=== PATIENT | female | born 1970 | race Caucasian/White ===

== ENCOUNTER 2017-11-12 09:26 | Emergency (ER) | payer BC ==
--- NOTE | 2017-11-12 11:35 | RAD REPORT ---
EXAM DESCRIPTION: RAD - Chest Single View - 11/12/2017 11:25 am CLINICAL HISTORY: Shortness of breath COMPARISON: 08/19/2017 FINDINGS: Portable technique limits examination quality. The lungs are grossly clear. The heart is normal in size. No displaced fractures. IMPRESSION: No acute intrathoracic process suspected.
[2017-11-12 11:37] LABS: Absolute Lymphocytes (CBC) 1.8 K/uL (0.7-4.9); Absolute Monocytes 0.4 K/uL (0.1-1.3); Absolute Neutrophil 6.7 K/uL (1.8-8.0); Basophils % 0.7 % (0-1.3); Eosinophils % 1.3 % (0-4.4); Hematocrit 41.4 % (36.0-45.0); Lymphocytes % 19.6 % (15.3-44.8); MCH 31.7 pg (27.0-35.0); MCV 93.8 fL (80-100); Monocytes % 4.6 % (3.3-12.3); RBC Red Blood Cell Count 4.42 M/uL (3.86-4.86)
[2017-11-12 11:50] LABS: Protime INR 1.03
[2017-11-12 11:55] LABS: Potassium 3.8 mEq/L (3.6-5.0)
[2017-11-12 12:01] LABS: Albumin 4.9 g/dL (3.2-5.5); Bilirubin Direct 0.1 mg/dL (0-0.2); Bilirubin Total 0.7 mg/dL (0.3-1.2); Magnesium 2.2 mg/dL (1.8-2.5)
[2017-11-12 12:03] LABS: CKMB Creatine Kinase MB 1.1 ng/ml (0.3-4.0)
--- NOTE | 2017-11-12 12:30 | EDPHYS ---
Physician Documentation [facility] Name: Ava Tompkins Age: 47 yrs Sex: Female : 1970 Arrival Date: 11/12/2017 Time: 09:29 Bed 15 Private MD: ED Physician Yogi Butler HPI: 11/12 10:22 This 47 yrs old Female presents to ER via Ambulatory with complaints of kav Palpitations, Breathing Difficulty, Leg Pain. 11:35 The patient presents with a history of irregular heart beat, heart racing. Context: The kav symptoms occur at rest. Onset: The symptoms/episode began/occurred acutely, just prior to arrival. Duration: The patient or guardian reports a single episode, that is now resolved. Modifying factors: The symptoms are aggravated by anxiety, The symptoms are alleviated by nothing. Associated signs and symptoms: Pertinent positives: anxiety, Pertinent negatives: chest pain, nausea, SOB, syncope, near-syncope, vertigo, vomiting. Severity of symptoms: At their worst the symptoms were moderate just prior to arrival. The patient has experienced a previous episode. patient present with c/o palpitation, sob and lle pain. she has had similar episode of palpitations and was treated for DX: Anxiety. patient reports that the "..sob was related to the anxiety" and lle pain is r/t "..recently pulled calf muscle". 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 - Family history:: not pertinent. - Social history:: Smoking status: Patient/guardian denies using tobacco. - Hospitalizations: : No recent hospitalization is reported. - History obtained from: . ROS: 11:37 Constitutional: Negative for fever, chills, and weight loss, Eyes: Negative for injury, kav pain, redness, and discharge, ENT: Negative for injury, pain, and discharge, Neck: Negative for injury, pain, and swelling, Respiratory: Negative for shortness of breath, cough, wheezing, and pleuritic chest pain, Abdomen/GI: Negative for abdominal pain, nausea, vomiting, diarrhea, and constipation, Back: Negative for injury and pain, : Negative for injury, bleeding, discharge, and swelling, MS/Extremity: Negative for injury and deformity, Skin: Negative for injury, rash, and discoloration, Neuro: Negative for headache, weakness, numbness, tingling, and seizure, Allergy/Immunology: Negative for hives, rash, and allergies, Endocrine: Negative for neck swelling, polydipsia, polyuria, polyphagia, and marked weight changes, Hematologic/Lymphatic: Negative for swollen nodes, abnormal bleeding, and unusual bruising. 11:37 Cardiovascular: Positive for palpitations, Negative for chest pain, edema, orthopnea, paroxysmal nocturnal dyspnea. 11:37 Psych: Positive for anxiety, depression, Negative for suicide gesture, suicidal ideation. Exam: 11:37 Constitutional: This is a well developed, well nourished patient who is awake, alert, kav and in no acute distress. Head/Face: Normocephalic, atraumatic. Eyes: Pupils equal round and reactive to light, extra-ocular motions intact. Lids and lashes normal. Conjunctiva and sclera are non-icteric and not injected. Cornea within normal limits. Periorbital areas with no swelling, redness, or edema. ENT: Nares patent. No nasal discharge, no septal abnormalities noted. Tympanic membranes are normal and external auditory canals are clear. Oropharynx with no redness, swelling, or masses, exudates, or evidence of obstruction, uvula midline. Mucous membranes moist. Neck: Trachea midline, no thyromegaly or masses palpated, and no cervical lymphadenopathy. Supple, full range of motion without nuchal rigidity, or vertebral point tenderness. No Meningismus. Chest/axilla: Normal chest wall appearance and motion. Nontender with no deformity. No lesions are appreciated. Respiratory: Lungs have equal breath sounds bilaterally, clear to auscultation and percussion. No rales, rhonchi or wheezes noted. No increased work of breathing, no retractions or nasal flaring. Abdomen/GI: Soft, non-tender, with normal bowel sounds. No distension or tympany. No guarding or rebound. No evidence of tenderness throughout. Back: No spinal tenderness. No costovertebral tenderness. Full range of motion. Skin: Warm, dry with normal turgor. Normal color with no rashes, no lesions, and no evidence of cellulitis. MS/ Extremity: Pulses equal, no cyanosis. Neurovascular intact. Full, normal range of motion. Neuro: Awake and alert, GCS 15, oriented to person, place, time, and situation. Cranial nerves II-XII grossly intact. Motor strength 5/5 in all extremities. Sensory grossly intact. Cerebellar exam normal. Normal gait. 11:37 Cardiovascular: Rate: normal, actual rate is 68 bpm, Rhythm: regular, Pulses: Pulses are 2+ in . Heart sounds: normal, normal S1and S2, Edema: is not appreciated, JVD: is not appreciated. 11:37 ECG was reviewed by the Attending Physician. 11:37 Psych: Behavior/mood is pleasant, cooperative, anxious, Affect is flat, Oriented to person, place, time, Patient has no thoughts/intents to harm self or others. Judgement / Insight is normal. Memory is normal. Delusions/hallucinations are not present. Vital Signs: 10:09 BP 130 / 83; Pulse 70; Resp 18; Temp 98.6(TE); Pulse Ox 100% on R/A; Weight 63.05 kg; hj Height 5 ft. 6 in. (167.64 cm); Pain 7/10; 10:40 BP 129 / 67; Pulse 65; Resp 18; Pulse Ox 100% on R/A; aj1 12:06 BP 119 / 73; Pulse 71; Resp 18; Pulse Ox 100% on R/A; aj1 13:12 BP 113 / 79; Pulse 76; Resp 16; Pulse Ox 100% on R/A; aj1 10:09 Body Mass Index 22.44 (63.05 kg, 167.64 cm) MDM: 10:22 Patient medically screened. ka 12:29 Data reviewed: vital signs, nurses notes, lab test result(s), EKG, radiologic studies. kav 11/12 10:57 Order name: Basic Metabolic Panel 11/12 10:57 Order name: BNP 11/12 10:57 Order name: CBC with Diff 11/12 10:57 Order name: Ckmb 11/12 10:57 Order name: CPK 11/12 10:57 Order name: LFT's 11/12 10:57 Order name: Magnesium 11/12 10:57 Order name: PT-INR 11/12 10:57 Order name: Ptt, Activated 11/12 10:57 Order name: Troponin (emerg Dept Use Only) 11/12 11:45 Order name: CBC with Automated Diff; Complete Time: 12:26 EDMS 11/12 12:26 Interpretation: Normal except: JOSE JUAN% 73.8. 11/12 11:53 Order name: Protime (+INR); Complete Time: 12:27 EDMS 11/12 12:27 Interpretation: Within normal limits. 11/12 11:53 Order name: PTT, Activated Partial Thromb; Complete Time: 12:27 EDMS 11/12 11:55 Order name: Basic Metabolic Panel; Complete Time: 12:27 EDMS 11/12 12:27 Interpretation: Normal except: GFR 80. 11/12 10:57 Order name: XRAY Chest (1 view) 11/12 10:57 Order name: EKG; Complete Time: 10:58 11/12 10:57 Order name: Cardiac monitoring; Complete Time: 10:58 11/12 10:57 Order name: EKG - Nurse/Tech; Complete Time: 10:58 11/12 10:57 Order name: IV Saline Lock; Complete Time: 10:58 11/12 10:57 Order name: Labs collected and sent; Complete Time: 10:58 11/12 10:57 Order name: O2 Per Protocol; Complete Time: 10:58 11/12 10:57 Order name: O2 Sat Monitoring; Complete Time: 10:58 11/12 11:36 Order name: RAD; Complete Time: 12:27 ED11/12 12:27 Interpretation: No acute disease. 11/12 12:00 Order name: Troponin (Emerg Dept Use Only); Complete Time: 12:27 EDMS 11/12 12:01 Order name: Liver (Hepatic) Function; Complete Time: 12:27 EDMS 11/12 12:28 Interpretation: Within normal limits. 11/12 12:01 Order name: Creatine Phosphokinase; Complete Time: 12:27 EDMS 11/12 12:28 Interpretation: Within normal limits. 11/12 12:01 Order name: Magnesium; Complete Time: 12:26 EDMS 11/12 12:26 Interpretation: Within normal limits. kav 11/12 12:04 Order name: CKMB Creatine Kinase MB; Complete Time: 12:26 EDMS 11/12 12:26 Interpretation: Within normal limits. kav 11/12 12:28 Order name: BNP B-Type Natriuretic Peptide; Complete Time: 12:32 EDMS 11/12 12:32 Interpretation: Within normal limits. kav EC:37 Rate is 68 beats/min. Rhythm is regular. QRS Boss is Normal. CT interval is normal. QRS kav interval is normal. QT interval is normal. No Q waves. T waves are Normal. No ST changes noted. Administered Medications: 12:21 Drug: Ativan 0.5 mg Route: IVP; Site: right forearm; aj1 13:13 Follow up: Response: No adverse reaction aj1 Disposition: 21:36 Co-signature as Attending Physician, Yogi Butler MD I agree with the assessment and kdr plan of care. Disposition: 11/12/17 12:29 Discharged to Home. Impression: Anxiety disorder, unspecified. - Condition is Stable. - Discharge Instructions: Social Anxiety Disorder, Panic Attacks, Ckgs-nm-Marn, Generalized Anxiety Disorder. - Prescriptions for Ativan 0.5 mg Oral Tablet - take 1 tablet by ORAL route every 8 hours As needed; 10 tablet. - Medication Reconciliation Form, Thank You Letter, Antibiotic Education, Prescription Opioid Use form. - Follow up: Private Physician; When: 1 - 2 days; Reason: Recheck today's complaints, Continuance of care, Re-evaluation by your physician. - Problem is new. - Symptoms have improved. Signatures: Dispatcher [employer] Nelda Tony RN RN aj1 Yogi Butler MD MD kdr Vern, Katherine, CADET DECK CADET DECK Andrey Aponte RN RN hj Corrections: (The following items were deleted from the chart) 12: 12:27 Within normal limits. kav kav 12:28 12:27 Within normal limits. kav kav
--- NOTE | 2017-11-12 12:30 | ER ---
Nurse's Notes [facility] Name: Ava Tompkins Age: 47 yrs Sex: Female : 1970 Arrival Date: 11/12/2017 Time: 09:29 Bed 15 Private MD: Diagnosis: Anxiety disorder, unspecified Presentation: 11/12 10:06 Presenting complaint: Patient states: my hear beats really fast and im short of breath, hj it started around 8 am today; my L leg is also hurting from an injury i had before;. Transition of care: patient was not received from another setting of care. Onset of symptoms was November 12, 2017 at 08:00. Care prior to arrival: None. 10:06 Method Of Arrival: Ambulatory 10:06 Acuity: RADHA 3 hj Triage Assessment: 10:08 General: Appears in no apparent distress. uncomfortable, Behavior is cooperative, hj appropriate for age, crying. Pain: Complains of pain in chest. Respiratory: Reports shortness of breath Onset: The symptoms/episode began/occurred today, the patient has moderate shortness of breath. 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 - Family history:: not pertinent. - Social history:: Smoking status: Patient/guardian denies using tobacco. - Hospitalizations: : No recent hospitalization is reported. - History obtained from: . Screenin:40 Abuse screen: Denies threats or abuse. Denies injuries from another. Nutritional aj1 screening: No deficits noted. Tuberculosis screening: No symptoms or risk factors identified. 13:23 Fall Risk None identified. aj1 Assessment: 10:09 Cardiovascular: Rhythm is regular. Respiratory: Airway is patent Respiratory effort is hj even, unlabored, Respiratory pattern is regular, symmetrical, Breath sounds are clear. 10:40 General: Appears in no apparent distress. uncomfortable, Behavior is cooperative, aj1 anxious. Pain: Complains of pain in left leg Pain does not radiate. Quality of pain is described as "feels like theres lead in it". Neuro: Level of Consciousness is awake, alert, obeys commands, Oriented to person, place, time, situation, Speech is normal, Facial symmetry appears normal. Cardiovascular: Reports palpitations, shortness of breath, Denies chest pain, diaphoresis, vomiting, Heart tones S1 S2 present Patient's skin is warm and dry. Rhythm is regular. Respiratory: Airway is patent Respiratory effort is even, unlabored, Respiratory pattern is regular, symmetrical, Breath sounds are clear bilaterally. GI: No signs and/or symptoms were reported involving the gastrointestinal system. : No signs and/or symptoms were reported regarding the genitourinary system. EENT: No signs and/or symptoms were reported regarding the EENT system. Derm: No signs and/or symptoms reported regarding the dermatologic system. Skin is pink, warm \\T\\ dry. normal. Musculoskeletal: No signs and/or symptoms reported regarding the musculoskeletal system. Circulation, motion, and sensation intact. 11:10 Reassessment: Patient appears in no apparent distress at this time. No changes from aj1 previously documented assessment. Patient and/or family updated on plan of care and expected duration. Pain level reassessed. Patient is alert, oriented x 3, equal unlabored respirations, skin warm/dry/pink. 12:06 Reassessment: Patient and/or family updated on plan of care and expected duration. Pain aj1 level reassessed. General: Appears in no apparent distress. uncomfortable, Behavior is calm, cooperative, appropriate for age. Neuro: Level of Consciousness is awake, alert, obeys commands, Oriented to person, place, time, situation, Speech is normal, Facial symmetry appears normal. Cardiovascular: Patient's skin is warm and dry. Rhythm is sinus rhythm. Respiratory: Airway is patent Respiratory effort is even, unlabored, Respiratory pattern is regular, symmetrical. Derm: Skin is pink, warm \\T\\ dry. normal. Musculoskeletal: Circulation, motion, and sensation intact. 13:11 Reassessment: Patient appears in no apparent distress at this time. No changes from aj1 previously documented assessment. Patient and/or family updated on plan of care and expected duration. Pain level reassessed. Patient is alert, oriented x 3, equal unlabored respirations, skin warm/dry/pink. Vital Signs: 10:09 BP 130 / 83; Pulse 70; Resp 18; Temp 98.6(TE); Pulse Ox 100% on R/A; Weight 63.05 kg; hj Height 5 ft. 6 in. (167.64 cm); Pain 7/10; 10:40 BP 129 / 67; Pulse 65; Resp 18; Pulse Ox 100% on R/A; aj1 12:06 BP 119 / 73; Pulse 71; Resp 18; Pulse Ox 100% on R/A; aj1 13:12 BP 113 / 79; Pulse 76; Resp 16; Pulse Ox 100% on R/A; aj1 10:09 Body Mass Index 22.44 (63.05 kg, 167.64 cm) ED Course: 09:29 Patient arrived in ED. mr 10:08 Triage completed. hj 10:09 Arm band placed on right wrist. hj 10:22 Lata Rose FNP is PHCP. kav 10:22 Yogi Butler MD is Attending Physician. ka 10:38 Nelda Howell, RN is Primary Nurse. aj1 10:40 Patient has correct armband on for positive identification. Placed in gown. Bed in low aj1 position. Call light in reach. Side rails up X 1. threat monitoring analyst on. Pulse ox on. NIBP on. 10:40 No provider procedures requiring assistance completed. Initial lab(s) drawn, by , ortiz sent to lab. Inserted saline lock: 20 gauge in right antecubital area, using aseptic technique. Blood collected. 11:24 X-ray completed. Portable x-ray completed in exam room. Patient tolerated procedure ml well. 11:58 EKG done, by solder technician. reviewed by Yogi Butler MD. tc 13:24 IV discontinued, intact, bleeding controlled, No redness/swelling at site. Pressure aj1 dressing applied. Administered Medications: 12:21 Drug: Ativan 0.5 mg Route: IVP; Site: right forearm; aj1 13:13 Follow up: Response: No adverse reaction aj1 Outcome: 12:29 Discharge ordered by . kav 13:23 Discharged to home ambulatory. aj1 13:23 Condition: good 13:23 Discharge instructions given to patient, Instructed on discharge instructions, follow up and referral plans. medication usage, Demonstrated understanding of instructions, follow-up care, wound care, Prescriptions given X 1. 13:24 Patient left the ED. aj1 Signatures: Nelda Howell, RN RN aj1 Lata Rose, CRISIS MENTAL HEALTH THERAPIST CRISIS MENTAL HEALTH THERAPIST Annmarie Burroughs mr Charles, Karla ml Vero Peralta, garment parts cutter hand EKG [facility] Andrey Dominguez, RN RN hj Corrections: (The following items were deleted from the chart) 10:11 10:09 Pulse 70bpm; Resp 18bpm; Pulse Ox 100% RA; Temp 98.6F Temporal; 63.05 kg; Height hj 5 ft. 6 in.; BMI: 22.4; Pain /10; hj
[2017-11-12] MEDS ORDERED: LORazepam 2 MG/ML VIAL ONE (12:32)
--- NOTE | 2017-11-12 16:51 | EKG ---
Test Date: 2017-10-24 Test Time: 10:08:25 Jack Machine Operator: ERUM MEASUREMENT RESULTS: Intervals: Rate: 68 AK: 130 QRSD: 74 QT: 430 QTc: 457 [place]: P: 65 AK: 130 QRS: 74 T: 58 INTERPRETIVE STATEMENTS: Normal sinus rhythm Normal ECG Compared to ECG 08/19/2017 12:39:31 No significant changes Electronically Signed On 11-12-17 16:50:06 CDT by Jadon Staton
== END 2017-11-12 13:24 | disposition home or self-care (01) ==
LOC: ER 09:26
DX: F41.9 Anxiety disorder, unspecified (principal); Z88.0 Allergy status to penicillin
CPT/HCPCS: 36415; 71045; 80048; 80076; 82550; 82553; 83735; 83880; 84484; 85025; 85610; 85730; 93005; 96374; 99284

== ENCOUNTER 2018-08-17 02:49 | Emergency (ER) | payer BC ==
--- OUTSIDE RECORDS SUMMARY | 2018-08-17 02:51 | XMS REPORT ---
:1970 Author Organization [employer] Care Team Providers Name Role Phone Pacheco, Na Provider Role Unavailable Allergies, Adverse Reactions, Alerts Substance Reaction Event Type penicillin Info Not Available Drug Allergy Problems Problem Type Condition Code Onset Dates Condition Status Assessment Rupture of left gastrocnemius S86.112S Active tendon, sequela Assessment Hot flashes R23.2 Active Assessment Difficulty sleeping G47.9 Active Problem Panic attacks F41.0 Active Problem Difficulty sleeping G47.9 Active Problem Depression with anxiety F41.8 Active Assessment Depression with anxiety F41.8 Active Assessment Panic attacks F41.0 Active Problem Hot flashes R23.2 Active Problem Rupture of left gastrocnemius S86.112S Active tendon, sequela Medications Medication Code System Code Instructions Start End Date Status Dosage Date Ativan [facility] 14434087930 0.5 MG Orally November 19, Active 1 tablet as every 12 hrs prn 2018 needed anxiety/panic attacks Duexis [facility] 67405118440 800-26.6 MG Active 1 tablet Orally Three times a day Viberzi [facility] 11680467796 75 MG Orally Active 1 tablet Twice a day with food Celexa [facility] 57521939277 20 MG Orally Active 1 tablet Once a day Effexor XR ND 37978859122 75 MG Orally November 19, Active 1 capsule Once a day 2018 with food Results No Known Results Summary Purpose [employer]Clinical[employer] Submission
--- OUTSIDE RECORDS SUMMARY | 2018-08-17 02:51 | XMS REPORT ---
:1970 Author Organization [employer] Care Team Providers Name Role Phone Pacheco, Na Provider Role Unavailable Allergies No Known Allergies Problems Problem Type Condition Code Onset Dates Condition Status Problem Hot flashes R23.2 Active Problem Rupture of left gastrocnemius S86.112S Active tendon, sequela Problem Moderate episode of recurrent F33.1 Active major depressive disorder Problem Difficulty sleeping G47.9 Active Problem Depression with anxiety F41.8 Active Problem Panic attacks F41.0 Active Medications No Known Medications Results No Known Results Summary Purpose eClinicalWorks Submission
--- OUTSIDE RECORDS SUMMARY | 2018-08-17 02:51 | XMS REPORT ---
:1970 Author Organization [employer] Care Team Providers Name Role Phone Pacheco, Na Provider Role Unavailable Allergies, Adverse Reactions, Alerts Substance Reaction Event Type penicillin Info Not Available Drug Allergy Problems Problem Type Condition Code Onset Dates Condition Status Assessment Panic attacks F41.0 Active Assessment Depression with anxiety F41.8 Active Assessment Moderate episode of recurrent F33.1 Active major depressive disorder Assessment Hot flashes R23.2 Active Problem Hot flashes R23.2 Active Problem Rupture of left gastrocnemius S86.112S Active tendon, sequela Problem Moderate episode of recurrent F33.1 Active major depressive disorder Problem Difficulty sleeping G47.9 Active Problem Depression with anxiety F41.8 Active Problem Panic attacks F41.0 Active Medications Medication Code System Code Instructions Start Date End Date Status Dosage Celexa NDC 0 Active not defined Results No Known Results Summary Purpose eClinicalWorks Submission
--- OUTSIDE RECORDS SUMMARY | 2018-08-17 02:51 | XMS REPORT ---
:1970 Author Organization [employer] Care Team Providers Name Role Phone Pacheco, Na Provider Role Unavailable Allergies, Adverse Reactions, Alerts Substance Reaction Event Type penicillin Info Not Available Drug Allergy Problems Problem Type Condition Code Onset Dates Condition Status Assessment Hot flashes R23.2 Active Assessment Depression with anxiety F41.8 Active Assessment Panic attacks F41.0 Active Assessment Screening mammogram, encounter for Z12.31 Active Problem Hot flashes R23.2 Active Problem Rupture of left gastrocnemius S86.112S Active tendon, sequela Problem Moderate episode of recurrent F33.1 Active major depressive disorder Problem Difficulty sleeping G47.9 Active Problem Depression with anxiety F41.8 Active Problem Panic attacks F41.0 Active Medications Medication Code Code Instructions Start End Status Dosage System Date Date Duexis [facility] 47207628554 800-26.6 MG Active 1 tablet Orally Three times a day Celexa [facility] 54464020038 20 MG Orally Active 1 tablet Once a day Wellbutrin SR [facility] 84168944244 100 MG Orally March 19, Active 1 tablet Once a day 2018 in the morning Viberzi [facility] 82573521045 75 MG Orally Active 1 tablet Twice a day with food Effexor XR [facility] 90766965403 150 MG Orally Active 1 capsule Once a day with food Ativan [facility] 31874148481 0.5 MG Orally Active 1 tablet every 12 hrs prn as needed anxiety/panic attacks Results No Known Results Summary Purpose eClinicalWorks Submission
--- OUTSIDE RECORDS SUMMARY | 2018-08-17 02:51 | XMS REPORT ---
:1970 Author Organization [employer] Care Team Providers Name Role Phone Pacheco, Na Provider Role Unavailable Allergies No Known Allergies Problems Problem Type Condition Code Onset Dates Condition Status Problem Panic attacks F41.0 Active Problem Difficulty sleeping G47.9 Active Problem Depression with anxiety F41.8 Active Assessment Screening mammogram, encounter for Z12.31 Active Problem Hot flashes R23.2 Active Problem Rupture of left gastrocnemius S86.112S Active tendon, sequela Medications No Known Medications Results No Known Results Summary Purpose eClinicalWorks Submission
--- OUTSIDE RECORDS SUMMARY | 2018-08-17 02:51 | XMS REPORT ---
[...] Instructions Start End Date Status Dosage Date Duexis [facility] 76144245057 800-26.6 MG Active 1 tablet Orally Three times a day Celexa [facility] 76150835888 20 MG Orally Active 1 tablet Once a day Effexor XR [facility] 85498752466 150 MG Orally December 17, Active 1 capsule Once a day 2017 with food Ativan ND 43979742661 0.5 MG Orally Active 1 tablet as every 12 hrs prn needed anxiety/panic attacks Viberzi [facility] 54696881771 75 MG Orally Active 1 tablet Twice a day with food Effexor XR [facility] 18716330868 75 MG Orally Active 1 capsule Once a day with food Results No Known Results Summary Purpose [employer]ClinicalWorks Submission
[2018-08-17] MEDS ORDERED: ASPIRIN 81 MG CHEWABLE TABLET ONE (03:29)
[2018-08-17] MEDS ORDERED: LORazepam 2 MG/ML VIAL ONE (03:29)
[2018-08-17] MEDS ORDERED: NA CHLORIDE 0.9% 1,000 ML ONE (03:30)
[2018-08-17 03:45] LABS: Absolute Lymphocytes (CBC) 2.6 K/uL (0.7-4.9); Absolute Monocytes 0.4 K/uL (0.1-1.3); Eosinophils % 1.6 % (0-4.4); Hematocrit 43.3 % (36.0-45.0); Lymphocytes % 36.2 % (15.3-44.8); MPV 9.2 fL (7.6-11.3); Monocytes % 5.3 % (3.3-12.3); Protime INR 1.08; RBC Red Blood Cell Count 4.66 M/uL (3.86-4.86)
[2018-08-17] MEDS ORDERED: LEVALBUTEROL 1.25 MG/3 ML NEB ONE (03:49)
[2018-08-17 03:51] LABS: Arterial Blood Carboxyhemoglob 0.7 % (0-1.5); Blood Gas Oxyhemoglobin 96.3 % (94-97); Blood O2 Saturation 98.1 % (92-98.5)
[2018-08-17 03:58] LABS: ALT/SGPT 26 U/L (12-78); AST/SGOT 23 U/L (15-37); Albumin 4.2 g/dL (3.4-5.0); Alkaline Phosphatase 58 U/L (45-117); BUN Blood Urea Nitrogen 13 mg/dL (7-18); Bicarbonate 23 mmol/L (21-32); Bilirubin Direct 0.1 mg/dL (0-0.2); Bilirubin Total 0.6 mg/dL (0.2-1.0); Glucose Level 113 mg/dL (74-106); Magnesium 2.4 mg/dL (1.8-2.4); NT PRO-BNP 41 pg/mL (<125); Potassium 3.7 mmol/L (3.5-5.1); Sodium Level 140 mmol/L (136-145); Troponin (Emerg Dept Use Only) < 0.02 ng/mL (0.0-0.045)
--- NOTE | 2018-08-17 04:30 | ER ---
Nurse's Notes [facility] Name: Ava Tompkins Age: 47 yrs Sex: Female : 1970 Arrival Date: 08/17/2018 Time: 02:54 Bed 16 Private MD: Abby Pacheco Diagnosis: Anxiety disorder. Insomnia Presentation: 08/17 03:00 Presenting complaint: Patient states: having difficulty of breathing, my heart beating rr5 fast, chest pain radiating to right shoulder, unable to sleep for 3 days. Transition of care: patient was not received from another setting of care. Onset of symptoms was August 14, 2018. Risk Assessment: Do you want to hurt yourself or someone else? Patient reports no desire to harm self or others. Initial Sepsis Screen: Does the patient meet any 2 criteria? No. Patient's initial sepsis screen is negative. Does the patient have a suspected source of infection? No. Patient's initial sepsis screen is negative. Care prior to arrival: None. 03:00 Method Of Arrival: Ambulatory rr5 03:00 Acuity: RADHA 3 rr5 Triage Assessment: 03:05 Respiratory: Reports the patient has mild shortness of breath. rr5 03:05 General: Appears in no apparent distress. Behavior is cooperative, anxious. General: rr5 see nurses notes. 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 - Social history:: Smoking status: Patient/guardian denies using tobacco, Patient/guardian denies using alcohol, street drugs. - Ebola Screening: : Patient negative for fever greater than or equal to 101.5 degrees Fahrenheit, and additional compatible Ebola Virus Disease symptoms Patient denies exposure to infectious person Patient denies travel to an Ebola-affected area in the 21 days before illness onset. Screenin:34 Abuse screen: Denies threats or abuse. Denies injuries from another. Nutritional rr5 screening: No deficits noted. Tuberculosis screening: No symptoms or risk factors identified. Fall Risk IV access (20 points). Total Alfonso Fall Scale indicates No Risk (0-24 pts). Assessment: 03:05 General: Appears in no apparent distress. uncomfortable, Behavior is cooperative, rr5 anxious. Pain: Complains of pain in chest. Pain: Pain radiates to right shoulder Pain currently is 5 out of 10 on a pain scale. Quality of pain is described as aching, Pain began gradually, Is intermittent. 03:05 Neuro: Level of Consciousness is awake, alert, obeys commands, Oriented to person, rr5 place, time. Cardiovascular: Capillary refill < 3 seconds Patient's skin is warm and dry. Rhythm is regular. Respiratory: Airway is patent Respiratory effort is even, unlabored, Respiratory pattern is regular, symmetrical. GI: No signs and/or symptoms were reported involving the gastrointestinal system. : No signs and/or symptoms were reported regarding the genitourinary system. EENT: No signs and/or symptoms were reported regarding the EENT system. Derm: Skin is intact, Skin temperature is warm. Musculoskeletal: Capillary refill < 3 seconds, Range of motion: intact in all extremities. 03:05 Respiratory: Breath sounds are clear bilaterally. rr5 Vital Signs: 03:03 BP 177 / 94; Pulse 97; Resp 20; Temp 98.8; Pulse Ox 100% ; Weight 71.67 kg; Height 5 rr5 ft. 6 in. (167.64 cm); 03:30 BP 150 / 81; Pulse 82; Resp 18; Pulse Ox 99% on R/A; rr5 04:00 BP 141 / 70; Pulse 89; Resp 17; Pulse Ox 99% ; rr5 05:00 BP 133 / 70; Pulse 80; Resp 16; Pulse Ox 99% on R/A; rr5 03:03 Body Mass Index 25.50 (71.67 kg, 167.64 cm) rr5 ED Course: 02:54 Patient arrived in ED. es 02:54 Abby Pacheco MD is Private Physician. es 02:56 Joel Golden MD is Attending Physician. pkl 03:00 Tony Spencer, VESTA is Primary Nurse. rr5 03:00 Patient has correct armband on for positive identification. Bed in low position. Call rr5 light in reach. manager cleaning on. Pulse ox on. NIBP on. 03:02 Triage completed. rr5 03:10 Arm band placed on. rr5 03:24 Inserted saline lock: 20 gauge in left antecubital area, using aseptic technique. Blood la1 collected. 03:44 X-ray completed. Portable x-ray completed in exam room. Patient tolerated procedure sg4 well. 03:45 XRAY Chest (1 view) In Process Unspecified. EDMS 04:29 Abby Pacheco MD is Referral Physician. pkl 05:26 No provider procedures requiring assistance completed. IV discontinued, intact, rr5 bleeding controlled, No redness/swelling at site. Pressure dressing applied. Administered Medications: 03:31 Drug: NS 0.9% 1000 ml Route: IV; Rate: 100 ml/hr; Site: left antecubital; rr5 05:24 Follow up: Response: No adverse reaction; IV Status: Order to discontinue infusion; IV rr5 Intake: 200ml 03:31 Drug: Aspirin 162 mg Route: PO; rr5 05:24 Follow up: Response: No adverse reaction rr5 03:31 Drug: Ativan 0.5 mg Route: IVP; Site: left antecubital; rr5 05:17 Follow up: Response: No adverse reaction rr5 03:42 Drug: Xopenex 1.25 mg Route: Inhalation; rr5 05:15 Drug: Effexor XR 75 mg Route: PO; rr5 05:17 Follow up: Response: Medication administered at discharge. rr5 Intake: 05:24 IV: 200ml; Total: 200ml. rr5 Outcome: 04:30 Discharge ordered by . pkl 05:15 Discharged to home ambulatory. rr5 05:15 Condition: stable 05:15 Discharge instructions given to patient, Instructed on discharge instructions, follow up and referral plans. medication usage, Demonstrated understanding of instructions, follow-up care, medications, Prescriptions given X 2. 05:28 Patient left the ED. rr5 Signatures: Dispatcher [employer] Joel Hodges MD MD pkl Paulina Maher Lee RN RN la1 Kim Pickard Raymond RN RN rr5
--- NOTE | 2018-08-17 04:31 | EDPHYS ---
Physician Documentation [facility] Name: Ava Tompkins Age: 47 yrs Sex: Female : 1970 Arrival Date: 08/17/2018 Time: 02:54 Bed 16 Private MD: Abby Pacheco ED Physician Joel Golden HPI: 08/17 03:10 This 47 yrs old Female presents to ER via Ambulatory with complaints of pkl Breathing Difficulty, Shoulder Pain. 03:10 The patient has shortness of breath at rest. Onset: The symptoms/episode began/occurred pkl 3 day(s) ago. Associated signs and symptoms: Pertinent positives: chest pain. The patient has not experienced similar symptoms in the past. 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 - Social history:: Smoking status: Patient/guardian denies using tobacco, Patient/guardian denies using alcohol, street drugs. - Ebola Screening: : Patient negative for fever greater than or equal to 101.5 degrees Fahrenheit, and additional compatible Ebola Virus Disease symptoms Patient denies exposure to infectious person Patient denies travel to an Ebola-affected area in the 21 days before illness onset. ROS: 03:10 Eyes: Negative for injury, pain, redness, and discharge, ENT: Negative for injury, pkl pain, and discharge, Neck: Negative for injury, pain, and swelling. 03:10 Cardiovascular: Positive for chest pain. 03:10 Respiratory: Positive for shortness of breath, Negative for cough. 03:10 Abdomen/GI: Negative for abdominal pain, nausea, vomiting, and diarrhea. 03:10 Back: Negative for acute changes. 03:10 : Negative for urinary symptoms. 03:10 MS/extremity: Negative for acute changes. 03:10 Skin: Negative for rash. 03:10 Neuro: Negative for altered mental status. Exam: 03:10 Head/Face: Normocephalic, atraumatic. Eyes: Pupils equal round and reactive to light, pkl extra-ocular motions intact. Lids and lashes normal. Conjunctiva and sclera are non-icteric and not injected. Cornea within normal limits. Periorbital areas with no swelling, redness, or edema. ENT: Nares patent. No nasal discharge, no septal abnormalities noted. Tympanic membranes are normal and external auditory canals are clear. Oropharynx with no redness, swelling, or masses, exudates, or evidence of obstruction, uvula midline. Mucous membranes moist. Neck: Trachea midline, no thyromegaly or masses palpated, and no cervical lymphadenopathy. Supple, full range of motion without nuchal rigidity, or vertebral point tenderness. No Meningismus. Chest/axilla: Normal chest wall appearance and motion. Nontender with no deformity. No lesions are appreciated. Cardiovascular: Regular rate and rhythm with a normal S1 and S2. No gallops, murmurs, or rubs. Normal PMI, no JVD. No pulse deficits. Respiratory: Lungs have equal breath sounds bilaterally, clear to auscultation and percussion. No rales, rhonchi or wheezes noted. No increased work of breathing, no retractions or nasal flaring. Abdomen/GI: Soft, non-tender, with normal bowel sounds. No distension or tympany. No guarding or rebound. No evidence of tenderness throughout. Back: No spinal tenderness. No costovertebral tenderness. Full range of motion. Skin: Warm, dry with normal turgor. Normal color with no rashes, no lesions, and no evidence of cellulitis. MS/ Extremity: Pulses equal, no cyanosis. Neurovascular intact. Full, normal range of motion. Neuro: Awake and alert, GCS 15, oriented to person, place, time, and situation. Cranial nerves II-XII grossly intact. Motor strength 5/5 in all extremities. Sensory grossly intact. Cerebellar exam normal. Normal gait. Vital Signs: 03:03 BP 177 / 94; Pulse 97; Resp 20; Temp 98.8; Pulse Ox 100% ; Weight 71.67 kg; Height 5 rr5 ft. 6 in. (167.64 cm); 03:30 BP 150 / 81; Pulse 82; Resp 18; Pulse Ox 99% on R/A; rr5 04:00 BP 141 / 70; Pulse 89; Resp 17; Pulse Ox 99% ; rr5 05:00 BP 133 / 70; Pulse 80; Resp 16; Pulse Ox 99% on R/A; rr5 03:03 Body Mass Index 25.50 (71.67 kg, 167.64 cm) rr5 MDM: 02:56 Patient medically screened. pkl 04:23 Data reviewed: vital signs, nurses notes, lab test result(s), EKG, radiologic studies, pkl plain films. ED course: Patient feeling better. Said symptoms started after she stopped taking Effexor and put on Wellbutrin. Said she started having difficulty breathing. headache, feeling anxious and unable to sleep when she stopped taking Effexor and put on Wellbutrin.. 08/17 03:10 Order name: Basic Metabolic Panel; Complete Time: 04:09 pkl 08/17 03:10 Order name: CBC with Diff; Complete Time: 04:09 pkl 08/17 03:10 Order name: LFT's; Complete Time: 04:09 pkl 08/17 03:10 Order name: Magnesium; Complete Time: 04:09 pkl 08/17 03:10 Order name: NT PRO-BNP; Complete Time: 04:09 pkl 08/17 03:10 Order name: PT-INR; Complete Time: 04:09 pkl 08/17 03:10 Order name: Troponin (emerg Dept Use Only); Complete Time: 04:09 pkl 08/17 03:10 Order name: XRAY Chest (1 view) pkl 08/17 03:10 Order name: D-Dimer; Complete Time: 04:09 pkl 08/17 03:10 Order name: ABG; Complete Time: 04:09 pkl 08/17 03:10 Order name: EKG; Complete Time: 03:14 pkl 08/17 03:10 Order name: Cardiac monitoring; Complete Time: 03:17 pkl 08/17 03:10 Order name: EKG - Nurse/Tech; Complete Time: 03:17 pkl 08/17 03:10 Order name: IV Saline Lock; Complete Time: 03:17 pkl 08/17 03:10 Order name: Labs collected and sent; Complete Time: 03:17 pkl 08/17 03:10 Order name: O2 Per Protocol; Complete Time: 03:17 pkl 08/17 03:10 Order name: O2 Sat Monitoring; Complete Time: 03:17 pkl Administered Medications: 03:31 Drug: NS 0.9% 1000 ml Route: IV; Rate: 100 ml/hr; Site: left antecubital; rr5 05:24 Follow up: Response: No adverse reaction; IV Status: Order to discontinue infusion; IV rr5 Intake: 200ml 03:31 Drug: Aspirin 162 mg Route: PO; rr5 05:24 Follow up: Response: No adverse reaction rr5 03:31 Drug: Ativan 0.5 mg Route: IVP; Site: left antecubital; rr5 05:17 Follow up: Response: No adverse reaction rr5 03:42 Drug: Xopenex 1.25 mg Route: Inhalation; rr5 05:15 Drug: Effexor XR 75 mg Route: PO; rr5 05:17 Follow up: Response: Medication administered at discharge. rr5 Disposition: 08/17/18 04:30 Discharged to Home. Impression: Anxiety disorder. Insomnia. - Condition is Stable. - Prescriptions for Ativan 1 mg Oral Tablet - take 1 tablet by ORAL route At bedtime As needed; 10 tablet. - Medication Reconciliation Form, Thank You Letter, Antibiotic Education, Prescription Opioid Use form. - Follow up: Abby Pacheco MD; When: 2 - 3 days; Reason: Re-evaluation by your physician. - Problem is new. - Symptoms have improved. Signatures: Dispatcher [employer] EDJoel Sanz MD MD pkAmada Johnson RN RN Tony Leong RN RN rr5 Corrections: (The following items were deleted from the chart) 05:28 04:30 08/17/2018 04:30 Discharged to Home. Impression: Anxiety disorder. Insomnia. rr5 Condition is Stable. Forms are Medication Reconciliation Form, Thank You Letter, Antibiotic Education, Prescription Opioid Use. Follow up: Abby Pacheco; When: 2 - 3 days; Reason: Re-evaluation by your physician. Problem is new. Symptoms have improved. pkl
[2018-08-17] MEDS ORDERED: VENLAFAXINE HCL XR 75 MG CAP PO ONE (05:04)
--- NOTE | 2018-08-17 07:58 | RAD REPORT ---
EXAM DESCRIPTION: Milla Single View08/17/2018 3:45 am CLINICAL HISTORY: Chest pain COMPARISON: October 2017 FINDINGS: The lungs appear clear of acute infiltrate. The heart is normal size IMPRESSION: No acute abnormalities displayed
--- NOTE | 2018-08-18 14:39 | EKG ---
Test Date: 2018-08-17 Test Time: 03:02:14 Aircraft Part Assembler: SYLVIA MEASUREMENT RESULTS: Intervals: Rate: 89 RI: 108 QRSD: 66 QT: 364 QTc: 442 [place]: P: 71 RI: 108 QRS: 49 T: 54 INTERPRETIVE STATEMENTS: Sinus rhythm with short RI Nonspecific ST abnormality Abnormal ECG Compared to ECG 10/24/2017 10:08:25 Short RI interval now present ST (T wave) deviation now present Electronically Signed On 08-18-18 14:36:58 COUNTY EXTENSION AGENT by Han Paige
== END 2018-08-17 05:28 | disposition home or self-care (01) ==
LOC: ER 02:49
DX: F41.9 Anxiety disorder, unspecified (principal); G47.00 Insomnia, unspecified; F32.9 Major depressive disorder, single episode, unspecified; E78.00 Pure hypercholesterolemia, unspecified; Z88.0 Allergy status to penicillin
CPT/HCPCS: 36415; 71045; 80048; 80076; 82805; 83735; 83880; 84484; 85025; 85379; 85610; 93005; 96361; 96374; 99285; J7030

== ENCOUNTER 2019-06-18 18:45 | Emergency (ER) | payer BC ==
[2019-06-18] MEDS ORDERED: DIAZEPAM 2 MG TABLET ONE (19:09)
[2019-06-18] MEDS ORDERED: IBUPROFEN 400 MG TAB ONE (19:09)
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
--- NOTE | 2019-06-18 20:15 | RAD REPORT ---
EXAM DESCRIPTION: RAD - Lumbar Spine 3 Views - 06/18/2019 7:49 pm CLINICAL HISTORY: Back pain FINDINGS: The alignment of the lumbar spine is satisfactory. No fracture or dislocation is seen. Mild spondylosis involves the distal lumbar spine
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
[2019-06-18 20:42] VITALS: TEMP 97.2
[2019-06-18 20:43] VITALS: BP 120/83; O2SAT 98
== END 2019-06-18 20:37 | disposition home or self-care (01) ==
LOC: ER 18:45
DX: M54.5 Low back pain (principal); M79.10 Myalgia, unspecified site; V43.63XA Car passenger injured in collision with pick-up truck in traffic accident, initial encounter; Y93.89 Activity, other specified; Y92.410 Unspecified street and highway as the place of occurrence of the external cause; Z88.0 Allergy status to penicillin
CPT/HCPCS: 70450; 72100; 72125; 99285

== ENCOUNTER 2019-11-28 02:36 | Emergency (ER) | payer BC ==
--- OUTSIDE RECORDS SUMMARY | 2019-11-28 02:38 | XMS REPORT ---
[...] End Date Status Dosage Date Ativan [facility] 73790304017 0.5 MG Orally November 19, Active 1 tablet as every 12 hrs prn 2018 needed anxiety/panic attacks Duexis [facility] 54850266491 800-26.6 MG Active 1 tablet Orally Three times a day Viberzi [facility] 56241586475 75 MG Orally Active 1 tablet Twice a day with food Celexa [facility] 10411523840 20 MG Orally Active 1 tablet Once a day Effexor XR ND 49718671152 75 MG Orally November 19, Active 1 capsule Once a day 2018 with food Results No Known Results Summary Purpose eClinicalWorks Submission
--- OUTSIDE RECORDS SUMMARY | 2019-11-28 02:39 | XMS REPORT ---
[...] End Status Dosage System Date Date Duexis [facility] 70904983836 800-26.6 MG Active 1 tablet Orally Three times a day Celexa [facility] 29509495430 20 MG Orally Active 1 tablet Once a day Wellbutrin SR [facility] 20621007413 100 MG Orally March 19, Active 1 tablet Once a day 2018 in the morning Viberzi [facility] 69105915258 75 MG Orally Active 1 tablet Twice a day with food Effexor XR [facility] 52441249733 150 MG Orally Active 1 capsule Once a day with food Ativan [facility] 78514292552 0.5 MG Orally Active 1 tablet every 12 hrs prn as needed anxiety/panic attacks Results No Known Results Summary Purpose eClinicalWorks Submission
--- OUTSIDE RECORDS SUMMARY | 2019-11-28 02:39 | XMS REPORT ---
[...] Start End Date Status Dosage Date Duexis [facility] 33644093253 800-26.6 MG Active 1 tablet Orally Three times a day Celexa [facility] 01050179487 20 MG Orally Active 1 tablet Once a day Effexor XR [facility] 49533613572 150 MG Orally December 17, Active 1 capsule Once a day 2017 with food Ativan ND 63161075563 0.5 MG Orally Active 1 tablet as every 12 hrs prn needed anxiety/panic attacks Viberzi [facility] 74702901409 75 MG Orally Active 1 tablet Twice a day with food Effexor XR [facility] 83806259899 75 MG Orally Active 1 capsule Once a day with food Results No Known Results Summary Purpose eClinicalWorks Submission
[2019-11-28] MEDS ORDERED: KETOROLAC 30 MG/ML INJ ONE (03:04)
--- NOTE | 2019-11-28 07:04 | ER ---
Nurse's Notes [facility] Name: Ava Tompkins Age: 49 yrs Sex: Female : 1970 Arrival Date: 11/28/2019 Time: 02:36 Bed 20 Private MD: Diagnosis: Strain of muscle(s) and tendon(s) of peroneal muscle group at lower leg level, right leg Presentation: 11/27 02:40 Chief complaint: Patient states: I hurt my leg 7 days ago exercising, I felt a pop and jb4 called EMS and they told me it was probably a sprain. It has progressively gotten worse and tonight it took my breath away when I tried to put weight on it. I am worried I could have blood clot. 02:40 Coronavirus screen: Proceed with normal triage. Ebola Screen: No symptoms or risks jb4 identified at this time. Initial Sepsis Screen: Does the patient meet any 2 criteria? HR > 90 bpm. Yes Does the patient have a suspected source of infection? No. Patient's initial sepsis screen is negative. Risk Assessment: Do you want to hurt yourself or someone else? Patient reports no desire to harm self or others. Onset of symptoms was November 22, 2019. Transition of care: patient was not received from another setting of care. 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 - Social history:: Smoking status: Patient denies any tobacco usage or history of. Patient/guardian denies using alcohol, street drugs. Screenin:17 Abuse screen: Denies threats or abuse. Nutritional screening: No deficits noted. jb4 Tuberculosis screening: No symptoms or risk factors identified. Fall Risk Gait- Weak (10 pts.). Total Alfonso Fall Scale indicates No Risk (0-24 pts). Assessment: 03:00 General: Appears in no apparent distress. uncomfortable, Behavior is calm, cooperative, jb4 appropriate for age. Pain: Complains of pain in right calf and right Achilles Pain radiates to right hamstring and right inner thigh Pain currently is 5 out of 10 on a pain scale. Quality of pain is described as shooting, Pain began 7 days ago. Is continuous, Alleviated by rest, Aggravated by increased activity, weight bearing. Neuro: Level of Consciousness is awake, alert, obeys commands, Oriented to person, place, time, situation, Media Reporter are equal bilaterally Weakness in right leg(s) foot/feet Speech is normal, Facial symmetry appears normal, Pupils are PERRLA, Intact. Cardiovascular: Patient's skin is warm and dry. Respiratory: Airway is patent Respiratory effort is even, unlabored, Respiratory pattern is regular, symmetrical. GI: No signs and/or symptoms were reported involving the gastrointestinal system. : No signs and/or symptoms were reported regarding the genitourinary system. EENT: No signs and/or symptoms were reported regarding the EENT system. Derm: Skin is intact, Skin is pink, warm \T\ dry. Musculoskeletal: Circulation, motion, and sensation intact. Range of motion: limited in right knee and right ankle. Injury Description: Bruise sustained to right calf, right ankle and right park is red, green, purple. 03:15 Reassessment: Provider notified of limited range of motion and weakness in right ankle jb4 and right knee. no new orders at this time. 04:00 Reassessment: Patient appears in no apparent distress at this time. Patient and/or jb4 family updated on plan of care and expected duration. Pain level reassessed. Patient is alert, oriented x 3, equal unlabored respirations, skin warm/dry/pink. Pt reports pain has decreased to 3/10. Given 2 warm blankets per request. 05:16 Reassessment: Patient appears in no apparent distress at this time. Patient and/or jb4 family updated on plan of care and expected duration. Pain level reassessed. Patient is alert, oriented x 3, equal unlabored respirations, skin warm/dry/pink. assisted to restroom and back to room. 06:15 Reassessment: Patient appears in no apparent distress at this time. No changes from jb4 previously documented assessment. Patient and/or family updated on plan of care and expected duration. Pain level reassessed. Patient is alert, oriented x 3, equal unlabored respirations, skin warm/dry/pink. Vital Signs: 02:40 BP 139 / 86; Pulse 108; Resp 16 S; Temp 98.2(O); Pulse Ox 100% on R/A; Weight 80.74 kg jb4 (R); Height 5 ft. 6 in. (167.64 cm) (R); Pain 5/10; 04:00 BP 136 / 69; Pulse 85; Resp 16; Pulse Ox 100% on R/A; Pain 3/10; jb4 05:16 BP 130 / 84; Pulse 83; Resp 16; Pulse Ox 98% on R/A; Pain 3/10; jb4 06:15 BP 127 / 73; Pulse 87; Resp 16; Pulse Ox 99% on R/A; Pain 3/10; jb4 07:30 BP 128 / 78; Pulse 85; Resp 18; Temp 97.9; Pulse Ox 99% on R/A; ph 02:40 Body Mass Index 28.73 (80.74 kg, 167.64 cm) jb4 ED Course: 02:36 Patient arrived in ED. ds1 02:40 Darnell Burch MD is Attending Physician. tw4 02:40 Arm band placed on right wrist. jb4 02:48 Kaleb Gregory, VESTA is Primary Nurse. jb4 02:53 Triage completed. jb4 07:01 Extremity Venous Uni Ltd US In Process Unspecified. EDMS 07:15 Patient has correct armband on for positive identification. Placed in gown. Bed in low ph position. Call light in reach. Side rails up X 1. Pulse ox on. NIBP on. 07:15 No provider procedures requiring assistance completed. Patient did not have IV access ph during this emergency room visit. Administered Medications: 03:05 Drug: TORadol 60 mg Route: IM; Site: right gluteus; jb4 07:00 Follow up: Response: No adverse reaction ph Outcome: 07:04 Discharge ordered by . tw4 07:34 Patient left the ED. ph 07:34 Discharged to home ambulatory. ph 07:34 Condition: good 07:34 Discharge instructions given to patient, Instructed on discharge instructions, follow up and referral plans. medication usage, Demonstrated understanding of instructions, follow-up care, medications, Prescriptions given X 2. Signatures: Dispatcher [employer] Ev Sanchez ds1 Neda Benson RN RN ph Kaleb Gregory RN RN jb4 Darnell Burch MD MD tw4 Corrections: (The following items were deleted from the chart) 07:55 07:40 No provider procedures requiring assistance completed. ph ph 07:55 07:40 IV discontinued, intact, bleeding controlled, No redness/swelling at site. ph Pressure dressing applied, 22G to RAC, placed by shiftman RN ph
--- NOTE | 2019-11-28 07:04 | EDPHYS ---
Physician Documentation [facility] Name: Ava Tompkins Age: 49 yrs Sex: Female : 1970 Arrival Date: 11/28/2019 Time: 02:36 Bed 20 Private MD: ED Physician Darnell Burch HPI: 11/27 04:40 This 49 yrs old Female presents to ER via Wheelchair with complaints of Leg tw4 Pain. 04:40 The patient presents with pain, that is acute. The complaints affect the posterior tw4 aspect of right knee and right calf. Context: The problem was sustained at home. Onset: The symptoms/episode began/occurred 6 day(s) ago. Modifying factors: The symptoms are alleviated by remaining still, the symptoms are aggravated by movement, weight bearing, bending knee. Associated signs and symptoms: The patient has no apparent associated signs or symptoms. Severity of symptoms: At their worst the symptoms were moderate, in the emergency department the symptoms have resolved. The patient has not experienced similar symptoms in the past. 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 - Social history:: Smoking status: Patient denies any tobacco usage or history of. Patient/guardian denies using alcohol, street drugs. ROS: 06:20 Constitutional: Negative for fever, chills, and weight loss, Eyes: Negative for injury, tw4 pain, redness, and discharge, Cardiovascular: Negative for chest pain, palpitations, and edema, Respiratory: Negative for shortness of breath, cough, wheezing, and pleuritic chest pain, Abdomen/GI: Negative for abdominal pain, nausea, vomiting, diarrhea, and constipation, Back: Negative for injury and pain, Skin: Negative for injury, rash, and discoloration, Neuro: Negative for headache, weakness, numbness, tingling, and seizure. 06:20 MS/extremity: Positive for pain, swelling. Exam: 06:20 Constitutional: This is a well developed, well nourished patient who is awake, alert, tw4 and in no acute distress. Head/Face: Normocephalic, atraumatic. Chest/axilla: Normal chest wall appearance and motion. Nontender with no deformity. No lesions are appreciated. Cardiovascular: Regular rate and rhythm with a normal S1 and S2. No gallops, murmurs, or rubs. Normal PMI, no JVD. No pulse deficits. Respiratory: Lungs have equal breath sounds bilaterally, clear to auscultation and percussion. No rales, rhonchi or wheezes noted. No increased work of breathing, no retractions or nasal flaring. Abdomen/GI: Soft, non-tender, with normal bowel sounds. No distension or tympany. No guarding or rebound. No evidence of tenderness throughout. Skin: Warm, dry with normal turgor. Normal color with no rashes, no lesions, and no evidence of cellulitis. Neuro: Awake and alert, GCS 15, oriented to person, place, time, and situation. Cranial nerves II-XII grossly intact. Motor strength 5/5 in all extremities. Sensory grossly intact. Cerebellar exam normal. Normal gait. 06:20 Musculoskeletal/extremity: Extremities: noted in the right calf: pain, ROM: intact in all extremities, Circulation is intact in all extremities. Sensation intact. Vital Signs: 02:40 BP 139 / 86; Pulse 108; Resp 16 S; Temp 98.2(O); Pulse Ox 100% on R/A; Weight 80.74 kg jb4 (R); Height 5 ft. 6 in. (167.64 cm) (R); Pain 5/10; 04:00 BP 136 / 69; Pulse 85; Resp 16; Pulse Ox 100% on R/A; Pain 3/10; jb4 05:16 BP 130 / 84; Pulse 83; Resp 16; Pulse Ox 98% on R/A; Pain 3/10; jb4 06:15 BP 127 / 73; Pulse 87; Resp 16; Pulse Ox 99% on R/A; Pain 3/10; jb4 07:30 BP 128 / 78; Pulse 85; Resp 18; Temp 97.9; Pulse Ox 99% on R/A; ph 02:40 Body Mass Index 28.73 (80.74 kg, 167.64 cm) jb4 MDM: 02:40 Patient medically screened. tw4 06:57 Differential diagnosis: dislocation, open fracture, closed fracture. Data reviewed: tw4 vital signs, nurses notes. Data interpreted: Pulse oximetry: Interpretation: acceptable. Counseling: I had a detailed discussion with the patient and/or guardian regarding: the historical points, exam findings, and any diagnostic results supporting the discharge/admit diagnosis. Medication response: Toradol relieved patient's pain. The symptoms have resolved. Response to treatment: and as a result, I will discharge patient. Special discussion: I discussed with the patient/guardian in detail that at this point there is no indication for admission to the hospital. It is understood, however, that if the symptoms persist or worsen the patient needs to return immediately for re-evaluation. 11/27 02:48 Order name: Extremity Venous Uni Ltd tw4 Administered Medications: 03:05 Drug: TORadol 60 mg Route: IM; Site: right gluteus; jb4 07:00 Follow up: Response: No adverse reaction ph Disposition: 11/28/19 07:04 Discharged to Home. Impression: Strain of muscle(s) and tendon(s) of peroneal muscle group at lower leg level, right leg. - Condition is Stable. - Discharge Instructions: Muscle Strain, [id number]. - Prescriptions for Ibuprofen 800 mg Oral Tablet - take 1 tablet by ORAL route every 8 hours As needed take with food; 30 tablet. Tramadol 50 mg Oral Tablet - take 1 tablet by ORAL route every 8 hours as needed; 12 tablet. - Medication Reconciliation Form, Thank You Letter, Antibiotic Education, Prescription Opioid Use form. - Follow up: Private Physician; When: Upon discharge from the Emergency Department; Reason: Recheck today's complaints, Continuance of care, Re-evaluation by your physician. - Problem is new. - Symptoms have improved. Signatures: Dispatcher [employer] EDNeda Silverio RN RN Kaleb Villarreal RN RN jb4 Darnell Burch MD MD tw4 Corrections: (The following items were deleted from the chart) 07:34 07:04 11/28/2019 07:04 Discharged to Home. Impression: Strain of muscle(s) and ph tendon(s) of peroneal muscle group at lower leg level, right leg. Condition is Stable. Forms are Medication Reconciliation Form, Thank You Letter, Antibiotic Education, Prescription Opioid Use. Follow up: Private Physician; When: Upon discharge from the Emergency Department; Reason: Recheck today's complaints, Continuance of care, Re-evaluation by your physician. Problem is new. Symptoms have improved. tw4
[2019-11-28 07:40] VITALS: TEMP 98.2
[2019-11-28 07:44] VITALS: BP 127/73; O2SAT 99
--- NOTE | 2019-11-28 08:30 | RAD REPORT ---
EXAM DESCRIPTION: US - Extremity Venous Uni Ltd - 11/28/2019 7:00 am CLINICAL HISTORY: PAIN Leg swelling and edema. COMPARISON: Extremity Venous Uni Ltd dated 08/19/2017 FINDINGS: Right lower extremity venous system was interrogated with Doppler technique. Normal flow, compressibility and augmentation was noted. There is no DVT present. IMPRESSION: No evidence of right lower extremity deep venous thrombosis.
== END 2019-11-28 07:34 | disposition home or self-care (01) ==
LOC: ER 02:36
DX: S86.311A Strain of muscle(s) and tendon(s) of peroneal muscle group at lower leg level, right leg, initial encounter (principal); X58.XXXA Exposure to other specified factors, initial encounter; Y93.B9 Activity, other involving muscle strengthening exercises; Y92.9 Unspecified place or not applicable; F32.9 Major depressive disorder, single episode, unspecified; Z88.0 Allergy status to penicillin
CPT/HCPCS: 93971; 96372; 99284

== ENCOUNTER 2020-12-07 14:25 | Emergency (ER) | payer BC ==
--- OUTSIDE RECORDS SUMMARY | 2020-12-07 14:29 | XMS REPORT | Continuity of Care Document ---
:1970 Author Organization [facility] t Address [address] [place] [address] Care Team Providers Name Role Phone Unavailable Unavailable Unavailable Problems This patient has no known problems. Allergies, Adverse Reactions, Alerts Allergy Allergy Status Severity Reaction(s) Onset Inactive Treating Comm ents Source Name Type Date Date Clinician penicill Adverse Active Info Not [facility] Medications Ordered Filled Start Stop Current Ordering Indication Dosage Frequency Signature Comments Components Source Medication Medication Date Date Medication? Clinician (SIG) Name Name Wellbutrin Wellbutrin 2017- Yes Na Pacheco [address] [facility] the [facility] morning [facility] Duexis Duexis Yes Na Pacheco [address] [facility] Celexa Celexa Yes Na Pacheco [address] [facility] Viberzi Viberzi Yes Na Pacheco [address] [facility] Effexor XR Effexor XR Yes Na Pacheco [address] [facility] with food [facility] Ativan Ativan Yes Na Pacheco [address] [facility] needed [facility] Procedures This patient has no known procedures. Encounters Start End Encounter Admission Attending Care Care Encounter Source Date/Time Date/Time Type Type Clinicians Facility Department ID 2020-08-27 2020-08-27 Outpatient [facility] [id number] [facility] 2018-05-27 2018-05-27 [facility] [id number] [facility] 08:09:00 08:09:00 t [place] [email or web address] Out[facility] Clin[facility] 2018-05-27 2018-05-27 [facility] [id number] [facility] 08:08:00 08:08:00 t [place] Kal[email or web address] - Drive [facility] 2018-04-30 2018-04-30 [facility] [id number] [facility] 10:15:00 10:15:00 t [place] [email or web address] - Graph [employer] [facility] 2018-03-19 2018-03-19 [facility] [id number] [facility] 08:45:00 08:45:00 t [place] [email or web address] - [employer] [facility] 2017-12-17 2017-12-17 [facility] [id number] [address] 11:25:00 11:25:00 t [place] [email or web address] - Graph [employer] [facility] Clin[facility] 2017-12-17 2017-12-17 [facility] [id number] [address] 10:00:00 10:00:00 t [place] sourceasy s - Graph [employer] [facility] Clin[facility] 2017-11-19 2017-11-19 [facility] [id number] [address] 11:30:00 11:30:00 t [place] sourceasy s - Graph [employer] [facility] Clin[facility] Results This patient has no known results.
[2020-12-07 15:57] LABS: Absolute Lymphocytes (CBC) 1.1 K/uL (0.7-4.9); Basophils % 0.6 % (0-1.3); Hematocrit 42.2 % (36.0-45.0); Lymphocytes % 29.6 % (15.3-44.8); MPV 8.1 fL (7.6-11.3)
[2020-12-07] MEDS ORDERED: MORPHINE 2 MG/ML SYR ONE (16:07)
[2020-12-07] MEDS ORDERED: NA CHLORIDE 0.9% 1,000 ML ONE (16:07)
[2020-12-07] MEDS ORDERED: ONDANSETRON 4 MG/2 ML VIAL ONE (16:07)
[2020-12-07 16:16] LABS: Albumin 3.6 g/dL (3.4-5.0); Bilirubin Direct 0.1 mg/dL (0-0.2); Bilirubin Total 0.3 mg/dL (0.2-1.0); Potassium 3.2 mmol/L (3.5-5.1); Protein, Total 7.8 g/dL (6.4-8.2)
--- NOTE | 2020-12-07 17:47 | RAD REPORT ---
EXAM DESCRIPTION: CT - Abdomen Pelvis W Contrast - 12/07/2020 5:26 pm CLINICAL HISTORY: ABD PAIN COMPARISON: No comparisons TECHNIQUE: Biphasic, helical CT imaging of the abdomen and pelvis was performed following 100 ml non -ionic IV contrast. No oral contrast administered. All CT scans are performed using dose optimization technique as appropriate and may include automated exposure control or mA/KV adjustment according to patient size. FINDINGS: No suspicious findings in the lung bases. The liver, spleen, and pancreas show no suspicious findings. Cholecystectomy clips are present. No bi liary tree dilatation. Symmetric renal function is seen with no hydronephrosis or suspicious renal mass. No pyelonephritis o r acute parenchymal process. No bladder abnormalities. No adrenal abnormalities. No uterine abnormali ty seen. No suspicious ovarian finding. No gastric dilatation or gastric wall thickening. Multiple prominent fluid-filled small bowel loops a re present. Fluid is present in the right-side of the colon. Speckled hyperdensities within the bowel are probably bismuth medication. No colon wall thickening or mass. No free air, free fluid or inflammatory stranding. No hernia, mass or bulky lymphadenopathy. No suspicious bony findings. IMPRESSION: Enteritis pattern is seen with prominent fluid-filled small bowel loops and fluid fillin g the right-side of the colon. No obstruction, free air or surgically emergent finding.
--- NOTE | 2020-12-07 18:00 | EDPHYS ---
Physician Documentation [facility] Name: Ava Tompkins Age: 50 yrs Sex: Female : 1970 Arrival Date: 12/07/2020 Time: 14:38 Bed 13 Private MD: ED Physician Darnell Burch HPI: 12/07 15:23 This 50 yrs old Female presents to ER via Ambulatory with complaints of jmm Nausea. 15:23 The patient presents to the emergency department with nausea, vomiting, diarrhea, jmm abdominal pain. Onset: The symptoms/episode began/occurred gradually, 2 day(s) ago. Possible causes: bad food exposure, sandwich. The symptoms are aggravated by nothing. The symptoms are alleviated by nothing. This is a 50 year old female with a history of hlp, that presents to the ED with complaints of abdominal pain, vomiting, diarrhea beginning approx 2 days ago. Patient states she believes she had food poisoning. . 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 - Social history:: Smoking status: Patient denies any tobacco usage or history of. ROS: 15:23 Constitutional: Negative for fever, chills, and weight loss, Cardiovascular: Negative jmm for chest pain, palpitations, and edema, Respiratory: Negative for shortness of breath, cough, wheezing, and pleuritic chest pain. 15:23 Abdomen/GI: Positive for abdominal pain, nausea and vomiting, diarrhea. 15:23 All other systems are negative. Exam: 15:23 Constitutional: This is a well developed, well nourished patient who is awake, alert, jmm and in no acute distress. Head/Face: atraumatic. Eyes: EOMI, no conjunctival erythema appreciated ENT: Moist Mucus Membranes Neck: Trachea midline, Supple Chest/axilla: Normal chest wall appearance and motion. Cardiovascular: Regular rate and rhythm. No edema appreciated Respiratory: Normal respirations, no respiratory distress appreciated 15:23 Skin: General appearance color normal MS/ Extremity: Moves all extremities, no obvious deformities appreciated, no edema noted to the lower extremities Neuro: Awake and alert, normal gait Psych: Behavior is normal, Mood is normal, Patient is cooperative and pleasant 15:23 Abdomen/GI: Inspection: abdomen appears normal, Bowel sounds: normal, Palpation: soft, mild abdominal tenderness, in all quadrants. Vital Signs: 15:03 BP 117 / 81; Pulse 92; Resp 16 S; Temp 96.9(TE); Pulse Ox 100% on R/A; Weight 74.39 kg ca1 (R); Height 5 ft. 6 in. (167.64 cm) (R); Pain 6/10; 16:28 BP 116 / 89; Pulse 94; Resp 18; Pulse Ox 99% on R/A; iw 17:36 BP 112 / 80; Pulse 96; Resp 18; Temp 98.1(O); Pulse Ox 99% ; bw 18:19 BP 120 / 80; Pulse 89; Resp 16; Pulse Ox 98% on R/A; iw 15:03 Body Mass Index 26.47 (74.39 kg, 167.64 cm) ca1 MDM: 15:23 Patient medically screened. [facility] 17:58 Data reviewed: vital signs, nurses notes. Counseling: I had a detailed discussion with lissette the patient and/or guardian regarding: the historical points, exam findings, and any diagnostic results supporting the discharge/admit diagnosis, lab results, radiology results, the need for outpatient follow up, to return to the emergency department if symptoms worsen or persist or if there are any questions or concerns that arise at home. ED course: Patient advised to follow up with pcp and otherwise given strict return precautions. patient understood and agrees with the plan of care. . 12/07 15:26 Order name: Basic Metabolic Panel; Complete Time: 16:22 [facility] 12/07 15:26 Order name: CBC with Diff; Complete Time: 16:01 [facility] 12/07 15:26 Order name: Hepatic Function; Complete Time: 16:22 [facility] 12/07 15:26 Order name: Lipase; Complete Time: 16:22 [facility] 12/07 16:48 Order name: CT Abd/Pelvis - IV Contrast Only; Complete Time: 17:49 [facility] 12/07 15:26 Order name: IV Saline Lock; Complete Time: 16:00 [facility] 12/07 15:26 Order name: Labs collected and sent; Complete Time: 16:00 [facility] Administered Medications: 15:59 Drug: NS 0.9% 1000 ml Route: IV; Rate: 1 bolus; Site: right antecubital; iw 15:59 Drug: Zofran (Ondansetron) 4 mg Route: IVP; Site: right antecubital; iw 15:59 Drug: morphine 2 mg Route: IVP; Site: right antecubital; iw Disposition: 18:48 Co-signature as Attending Physician, Darnell Burch MD I agree with the assessment and [facility] plan of care. Disposition: 12/07/20 17:59 Discharged to Home. Impression: Gastroenteritis. - Condition is Stable. - Discharge Instructions: Food Choices to Help Relieve Diarrhea, Adult, Viral Gastroenteritis, Adult. - Prescriptions for Zofran ODT 4 mg Oral tablet,disintegrating - place 1 tablet by TRANSLINGUAL route every 4-6 hours; 20 tablet. Bentyl 20 mg Oral Tablet - take 2 tablet by ORAL route every 6 hours As needed; 40 tablet. - Medication Reconciliation Form, Thank You Letter, Antibiotic Education, Prescription Opioid Use form. - Follow up: Private Physician; When: 2 - 3 days; Reason: Recheck today's complaints, Continuance of care, Re-evaluation by your physician. - Notes: Please take a probiotic daily, example would be FLORASTOR. Signatures: Dispatcher [employer] EDMS Daryn Horvath PA PA jmm Williams, Irene, RN RN Darnell Hamm MD MD [facility] Darcie Campa RN RN ca1 Corrections: (The following items were deleted from the chart) 18:20 17:59 12/07/2020 17:59 Discharged to Home. Impression: Gastroenteritis. Condition is iw Stable. Forms are Medication Reconciliation Form, Thank You Letter, Antibiotic Education, Prescription Opioid Use. Follow up: Private Physician; When: 2 - 3 days; Reason: Recheck today's complaints, Continuance of care, Re-evaluation by your physician. lissette
--- NOTE | 2020-12-07 18:00 | ER ---
Nurse's Notes [facility] Name: Ava Tompkins Age: 50 yrs Sex: Female : 1970 Arrival Date: 12/07/2020 Time: 14:38 Bed 13 Private MD: Diagnosis: Gastroenteritis Presentation: 12/07 15:03 Chief complaint: Patient states: Food poisoning from a sandwich I ate on Thursday. ca1 Reports N/V/D since morning. Reports abdominal pain, cramps, sweats and chills. Coronavirus screen: Coronavirus screen: Client denies travel out of the [place] in the last 14 days. chills, diarrhea, nausea, vomiting. Client presents with at least one sign or symptom that may indicate coronavirus-19. Standard/surgical mask placed on the client. Provider contacted for isolation considerations. Ebola Screen: Patient negative for fever greater than or equal to 101.5 degrees Fahrenheit, and additional compatible Ebola Virus Disease symptoms Patient denies exposure to infectious person. Patient denies travel to an Ebola-affected area in the 21 days before illness onset. No symptoms or risks identified at this time. Initial Sepsis Screen: Does the patient meet any 2 criteria? No. Patient's initial sepsis screen is negative. Does the patient have a suspected source of infection? No. Patient's initial sepsis screen is negative. Risk Assessment: Do you want to hurt yourself or someone else? Patient reports no desire to harm self or others. Onset of symptoms was December 07, 2020. 15:03 Method Of Arrival: Ambulatory ca1 15:03 Acuity: RADHA 3 ca1 Triage Assessment: 15:30 General: Appears in no apparent distress. Behavior is calm, cooperative. 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 - Social history:: Smoking status: Patient denies any tobacco usage or history of. Screenin:22 Abuse screen: Denies threats or abuse. Nutritional screening: No deficits noted. iw Tuberculosis screening: No symptoms or risk factors identified. Fall Risk None identified. Assessment: 15:22 Pain: Denies pain. Neuro: No deficits noted. Cardiovascular: No deficits noted. iw Respiratory: No deficits noted. GI: Abdomen is flat, non-distended, Reports nausea. : No signs and/or symptoms were reported regarding the genitourinary system. EENT: No signs and/or symptoms were reported regarding the EENT system. Derm: No deficits noted. Musculoskeletal: No signs and/or symptoms reported regarding the musculoskeletal system. 16:28 Reassessment: Patient appears in no apparent distress at this time. Patient and/or iw family updated on plan of care and expected duration. Pain level reassessed. Patient is alert, oriented x 3, equal unlabored respirations, skin warm/dry/pink. 17:36 Reassessment: Patient appears in no apparent distress at this time. Patient and/or bw family updated on plan of care and expected duration. Pain level reassessed. Patient is alert, oriented x 3, equal unlabored respirations, skin warm/dry/pink. 18:19 Reassessment: Patient appears in no apparent distress at this time. Patient states iw feeling better. Vital Signs: 15:03 BP 117 / 81; Pulse 92; Resp 16 S; Temp 96.9(TE); Pulse Ox 100% on R/A; Weight 74.39 kg ca1 (R); Height 5 ft. 6 in. (167.64 cm) (R); Pain 6/10; 16:28 BP 116 / 89; Pulse 94; Resp 18; Pulse Ox 99% on R/A; iw 17:36 BP 112 / 80; Pulse 96; Resp 18; Temp 98.1(O); Pulse Ox 99% ; bw 18:19 BP 120 / 80; Pulse 89; Resp 16; Pulse Ox 98% on R/A; iw 15:03 Body Mass Index 26.47 (74.39 kg, 167.64 cm) ca1 ED Course: 14:38 Patient arrived in ED. am2 15:06 Triage completed. ca1 15:06 Arm band placed on right wrist. ca1 15:07 Daryn Horvath PA is PHCP. [facility] 15:07 Darnell Burch MD is Attending Physician. jmm 15:21 Claribel Marie, VESTA is Primary Nurse. iw 15:22 Patient has correct armband on for positive identification. Call light in reach. Side iw rails up X 1. Pulse ox on. NIBP on. 15:22 No provider procedures requiring assistance completed. iw 17:26 CT Abd/Pelvis - IV Contrast Only In Process Unspecified. EDMS 18:20 IV discontinued, intact, bleeding controlled, No redness/swelling at site. Pressure iw dressing applied. Administered Medications: 15:59 Drug: NS 0.9% 1000 ml Route: IV; Rate: 1 bolus; Site: right antecubital; iw 15:59 Drug: Zofran (Ondansetron) 4 mg Route: IVP; Site: right antecubital; iw 15:59 Drug: morphine 2 mg Route: IVP; Site: right antecubital; iw Outcome: 17:59 Discharge ordered by MD. jmm 18:20 Discharged to home ambulatory, with family. iw 18:20 Condition: good 18:20 Discharge instructions given to patient, Instructed on discharge instructions, follow up and referral plans. medication usage, Demonstrated understanding of instructions, follow-up care, medications, Prescriptions given X 2. 18:20 Patient left the ED. iw Signatures: Dispatcher [employer] EDMS Daryn Horvath PA PA jmm Williams, Irene, RN RN iw Lorelei Riley am2 Darcie Campa RN RN [facility] Ileana Dietz RN RN
[2020-12-07 18:29] VITALS: TEMP 98.1
[2020-12-07 18:31] VITALS: BP 120/80; O2SAT 98
== END 2020-12-07 18:20 | disposition home or self-care (01) ==
LOC: ER 14:25
DX: K52.9 Noninfective gastroenteritis and colitis, unspecified (principal); Z88.0 Allergy status to penicillin
CPT/HCPCS: 85025; 80048; 36415; 80076; 83690; 74177; 96375; 96374; 99284; Q9967; J2270; J7030; J2405